=== PATIENT | male | born 1970 | race Caucasian/White ===

== ENCOUNTER 2023-01-15 02:31 | Emergency (ER) | payer OTHER ==
[~2023-01-15] VITALS: Ht 175.3 cm; Wt 72.7 kg
[2023-01-15 02:45] VITALS: TEMP 97.9
[2023-01-15 03:19] VITALS: BP 115/74; PULSE 74; RESP 18; O2SAT 95
== END 2023-01-15 03:15 ==
LOC: ER 02:32
DX: S01.411D Laceration without foreign body of right cheek and temporomandibular area, subsequent encounter (principal); X58.XXXD Exposure to other specified factors, subsequent encounter
CPT/HCPCS: 99283